=== PATIENT | female | born 1995 | race African-American/Black ===

== ENCOUNTER 2016-12-06 00:15 | Outpatient (CLI) | payer OTHER ==
[2016-12-06 00:30] VITALS: BP 129/69; PULSE 83; RESP 16; TEMP 98.2
--- NOTE | 2016-12-08 07:49 | P.MSEPDOC ---
Presenting Problems - Arrival Data Date of Arrival on Unit: 12/06/16 Time of Arrival on Unit: 00:09 Mode of Transport: Stretcher - Complaint OB-Reason for Admission/Chief Complaint: Pain Comment: Vaginal pressure Medical History - Information : 2 Para: 1 Term: 1 : 0 Abortions: Spontaneous or Elective: 0 Number of Living Children: 1 - Gestational Age Expected Date of Delivery: 01/15/17 Gestational Age by GRACE (wks/days): 34 Weeks and 4 Days - History Comment: care in [place] Review of Systems - Review of Systems Constitutional: No problems Breast: No problems ENT: No problems Cardiovascular: No problems Respiratory: No problems Gastrointestinal: No problems Genitourinary: No problems Musculoskeletal: No problems Neurological: No problems Skin: No problems Vital Signs - Temperature Temperature: 98.2 F Temperature Source: Temporal Artery Scan - Pulse Pulse Oximetery Pulse Rate: 83 Pulse Assessment Method: Pulse Oximetry - Respirations Respiratory Rate: 16 Oxygen Delivery Method: Room Air - Blood Pressure Sitting Blood Pressure: 129/69 Blood Pressure Mean: 89 Blood Pressure Source: Automatic Cuff Medical Screen Scoring (Pre) - Cervical Exam Dilation: 0 cm = 0 Membranes: Intact - Uterine Contractions Frequency: N/A Duration: N/A Intensity: N/A - Maternal Vital Signs Maternal Temperature: N/A Maternal Blood Pressure: N/A Signs of Preeclampsia: N/A Maternal Respirations: N/A - Maternal Trauma Maternal Trauma: N/A - Assessment Baseline FHR: 140 Heart Rate - NICHD Category: Category I (Normal) = 0 NST: Reactive Position: N/A - Total Score Total Score (Pre): 0 - Level of Risk Level of Risk: Low (0-5) Physician Notification (Pre) - Physician Notified Physician Notified Date: 12/06/16 Physician Notified Time: 12:20 Physician/Practitioner Notifed:: Dr. Carr - Notification Comment Comment: Monitor patient for 20-30 minutes, with reactive NST okay to discharge home with instructions Medical Screen Scoring (Post) - Cervical Exam Dilation: 0 cm = 0 Membranes: Intact - Uterine Contractions Frequency: N/A Duration: N/A Intensity: N/A - Maternal Vital Signs Maternal Temperature: N/A Maternal Blood Pressure: N/A Signs of Preeclampsia: N/A Maternal Respirations: N/A - Maternal Trauma Maternal Trauma: N/A - Total Score Total Score (Post): 0 - Post Treatment Level of Risk Post Treatment Level of Risk: Low (0-5) Disposition - Disposition OB Disposition: Discharge to home Discharge Date: 12/06/16 Discharge Time: 00:40 I agree with the RN Medical Screening Exam: Yes Risk & Benefit of care provided described in d/c instruction: Yes Diagnosis: RELATED CONDITIONS, UNSPECIFIED, THIRD TRIMESTER
== END 2016-12-06 00:40 | disposition home or self-care (01) ==
LOC: FBPOP 00:15
PROVIDERS: ATTEND Obstetrics & Gynecology
DX: O26.93 Pregnancy related conditions, unspecified, third trimester (principal); Z3A.34 34 weeks gestation of pregnancy
CPT/HCPCS: 59025; G0463; 99213